=== PATIENT | female | born 1940 | race Caucasian/White ===

== ENCOUNTER 2019-05-23 08:43 | Day surgery (SDC) | payer OTHER ==
[2019-05-20 11:26] LABS: CALCIUM 9.5 mg/dL (8.5-10.1); CARBON DIOXIDE 29.6 mmol/L (21-32); CHLORIDE SERUM 103 mmol/L (98-107); CREATININE SERUM 1.1 mg/dL (0.6-1.0); GLUCOSE SERUM 107 mg/dL (74-106); POTASSIUM SERUM 5.1 mmol/L (3.5-5.1); SODIUM SERUM 141 mmol/L (136-145)
--- NOTE | 2019-05-20 11:30 | NUR ---
LAB RESULTS FOR BMP, EKG AND H&P FAXED TO SURGERY FOR DR CALDERON ANESTHESIA TO REVIEW. PT REQUESTS "SINCE HAD A BMP FOR CT SCAN AT [facility] ON 05-13-2019, PREFERS NOT TO HAVE IT REPEATED IF INSURANCE DOES NOT COVER THE COST OF REPEATING TEST." PER DR CALDERON AFTER REVIEW TO REPEAT BMP FOR PREOP LAB. DR SATURNINO BUSBY ALSO FAXED WITH EKG AND LAB RESULTS. SPOKE WITH ALINA, STATES "NO MEDICAL CLEARANCE IS NEEDED."
[2019-05-20 12:20] LABS: BASOPHIL % 0.4 % (0-2); PLATELET COUNT 303 x10^3mcL (130-400); RED CELL DISTRIBUTION WIDTH 12.8 % (11.5-14.5)
[~2019-05-23] VITALS: Ht 152.4 cm; Wt 63.5 kg
[2019-05-23 09:19] VITALS: BP 150/75
[2019-05-23 16:54] VITALS: BP 113/62
== END 2019-05-23 16:30 | disposition home or self-care (01) ==
LOC: DS 08:43 → OR 11:00 → DS 16:30
PROVIDERS: Surgery
DX: K81.2 Acute cholecystitis with chronic cholecystitis (principal); E66.3 Overweight; J45.909 Unspecified asthma, uncomplicated; K21.9 Gastro-esophageal reflux disease without esophagitis; I25.119 Atherosclerotic heart disease of native coronary artery with unspecified angina pectoris; I12.9 Hypertensive chronic kidney disease with stage 1 through stage 4 chronic kidney disease, or unspecified chronic kidney disease; E11.22 Type 2 diabetes mellitus with diabetic chronic kidney disease; N18.9 Chronic kidney disease, unspecified; D64.9 Anemia, unspecified; F32.9 Major depressive disorder, single episode, unspecified; Z88.2 Allergy status to sulfonamides; Z85.118 Personal history of other malignant neoplasm of bronchus and lung; Z86.73 Personal history of transient ischemic attack (TIA), and cerebral infarction without residual deficits; Z68.27 Body mass index [BMI] 27.0-27.9, adult
CPT/HCPCS: J0330; J0690; J1170; J2405; J2704; J2710; J3010; J3490; J7120; Q0092